=== PATIENT | male | born 1960 | race Caucasian/White ===

== ENCOUNTER 2017-11-24 00:24 | Emergency (ER) | payer OTHER ==
[~2017-11-24] VITALS: Ht 182.9 cm; Wt 102.5 kg
[~2017-11-24 00:24] MED LIST: COZAAR50 MG; GLUCOPHAGE XR500 MG; LIPITOR PO
[2017-11-24] MEDS ORDERED: CIALIS5 MG (00:34)
[2017-11-24] MEDS ORDERED: LIPITOR20 MG (00:34)
[2017-11-24] MEDS ORDERED: VALTREX1000 MG PO (00:35)
[2017-11-24] MEDS ORDERED: KETO10TA2 PO (05:12)
[2017-11-24] MEDS ORDERED: TAMS0.4C PO (05:12)
== END 2017-11-24 05:22 | disposition home or self-care (01) ==
LOC: ER 00:24
DX: N13.2 Hydronephrosis with renal and ureteral calculous obstruction (principal)